=== PATIENT | female | born 1970 | race Caucasian/White ===

== ENCOUNTER 2021-04-24 08:00 | Outpatient (CLI) | payer OTHER | END 2021-04-24 23:59 | LOC: LAB.N 08:00 | PROVIDERS: ATTEND Physician Assistant | DX: M79.10 Myalgia, unspecified site (principal); Z20.822 Contact with and (suspected) exposure to COVID-19 ==

== ENCOUNTER 2022-03-27 14:29 | Outpatient (CLI) | payer OTHER ==
[2022-03-27 14:52] LABS: INR 0.9 (0.8-1.2); PT - PROTHROMBIN TIME 10.6 secs (9.9-12.6)
[2022-03-27 14:59] LABS: PARTIAL THROMBOPLASTIN TIME 33.6 secs (24.9-33.3)
== END 2022-03-27 14:30 | disposition home or self-care (01) ==
LOC: LAB 14:29
PROVIDERS: ATTEND Ophthalmology
DX: H11.30 Conjunctival hemorrhage, unspecified eye (principal)
CPT/HCPCS: 36415; 85303; 85306; 85610; 85730

== ENCOUNTER 2022-11-23 07:28 | Outpatient (CLI) | payer OTHER ==
--- NOTE | 2022-11-26 10:04 | MRI Report ---
PROCEDURE: KNEE WO - LT INDICATIONS: PAIN IN LEFT KNEE TECHNIQUE: Noncontrast sagittal PD fast spin echo and T2 fast spin echo with fat saturation, sagittal 3-D gradie nt sequence with fat saturation; coronal T1 spin echo and PD fast spin echo with fat saturation, and axial PD fast spin echo with fat saturation through the knee. COMPARISON: None. FINDINGS: Image quality: Excellent. Menisci: There is horizontal tear involving the anterior horn and the body of the lateral meniscus. There is intrasubstance degeneration of the posterior horn the medial meniscus. The meniscal root ligaments appear intact. Cruciate ligaments: The anterior and posterior cruciate ligaments appear intact. Medial structures: The medial collateral ligament appears intact. The semimembranosus tendon insert ions and meniscocapsular junction appear intact. Visualized portions of the pes anserinus tendons ap pear normal. No abnormal bursal fluid. Lateral structures: The lateral collateral ligament and the biceps femoris tendon appear intact. Th e popliteus tendon appears normal. Iliotibial band appears normal. Anterior structures: The quadriceps and patellar tendons appear intact. Mild patellar tendinitis in the distal patellar tendon at the tibial tubercle insertion. Patellar alignment is normal. No femor al trochlear dysplasia or ventral trochlear prominence. No edema in the infrapatellar fat pad. Bones and cartilage: No bone marrow contusions or fractures. The cartilage of the medial and latera l femorotibial compartments, as well as the patellofemoral compartment, appears normal in thickness. Joint space: There is physiologic knee joint fluid. There is a tiny Paulino's cyst. Normal appearing synovial plicae are incidentally noted. IMPRESSION: 1. Horizontal tear of the anterior horn and body of the lateral meniscus. 2. Intrasubstance degeneration of the posterior horn the medial meniscus. 3. Mild patellar tendinitis. Reviewed by: Frandy Fajardo MD on 11/26/2022 10:03 AM PDT Approved by: Frandy Fajardo MD on 11/26/2022 10:03 AM PDT Station ID: [id number]
== END 2022-11-23 07:29 | disposition home or self-care (01) ==
LOC: DI 07:28
PROVIDERS: ATTEND Physician Assistant
DX: S83.282A Other tear of lateral meniscus, current injury, left knee, initial encounter (principal); M23.322 Other meniscus derangements, posterior horn of medial meniscus, left knee; M76.52 Patellar tendinitis, left knee